=== PATIENT | male | born 1955 | race African-American/Black ===

== ENCOUNTER 2018-08-21 19:22 | Inpatient (IN) | payer SELFPAY ==
[~2018-08-21] VITALS: Ht 180.3 cm; Wt 97.5 kg
[2018-08-21] MEDS ORDERED: SODIUM CHLORIDE 0.9% 1,000 ML IV ONE (20:30)
[2018-08-21] MEDS ORDERED: KETOROLAC 30MG/ML VIAL IV STA (20:30)
[2018-08-21] MEDS ORDERED: ONDANSETRON HCL 4MG/2ML INJ IV ONE (20:45)
[2018-08-21 20:57] LABS: EOSINOPHILS % 2.1 % (0.0-5.0); HEMOGLOBIN. 14.2 g/dL (14.0-18.0); LYMPHOCYTES % 26.5 % (20.0-50.0); MEAN CORPUSCULAR HEMOGLOBIN 30.5 pg (28.0-32.0); MEAN CORPUSCULAR VOLUME 90.4 fL (80.0-94.0); MEAN PLATELET VOLUME 9.2 fl (7.4-10.4); MONOCYTES % 6.7 % (2.0-8.0); NEUTROPHILS % 63.7 % (40.0-76.0); PLATELET 214 x1000/uL (130-400); RED BLOOD CELL COUNT 4.65 mill/uL (4.7-6.1)
[2018-08-21 21:07] LABS: CHLORIDE 104 mEq/L (98-107)
[2018-08-21 21:12] LABS: D-DIMER < 0.19 mg/L FEU (<0.50); INR 1.1; PARTIAL THROMBOPLASTIN TIME 24.6 sec (23.4-31.0); PROTHROMBIN TIME 10.8 sec (9.1-11.1)
[2018-08-21] MEDS ORDERED: ASPIRIN 325MG EC TABLET PO ONE (21:45)
[2018-08-21] MEDS ORDERED: NITROGLYCERIN 0.4MG TABLET SL SL PRN (21:45)
[2018-08-21] MEDS ORDERED: DOCUSATE SODIUM 100MG CAPSULE PO PRN (23:00)
[2018-08-21] MEDS ORDERED: ONDANSETRON HCL 4MG/2ML INJ IV PRN (23:00)
[2018-08-21] MEDS ORDERED: ACETAMINOPHEN 325MG TABLET PO PRN (23:00)
[2018-08-21] MEDS ORDERED: MAGNESIUM/ALUMINUM HYDROXIDE/SIMETHICONE 30ML UDC PO PRN (23:00)
[2018-08-22 01:34] LABS: CLARITY URINE CLEAR (CLEAR); COLOR URINE YELLOW (YELLOW); KETONES URINE NEGATIVE (NEGATIVE); LEUKOCYTE ESTERASE URINE NEGATIVE (NEGATIVE); NITRITE URINE NEGATIVE (NEGATIVE); OCCULT BLOOD URINE NEGATIVE (NEGATIVE); PROTEIN URINE NEGATIVE (NEGATIVE); SPECIFIC GRAVITY URINE 1.018 (1.005-1.030); UROBILINOGEN URINE 0.2 E.U./dL (0.2-1.0)
[2018-08-22 06:30] VITALS: BP 172/102
[2018-08-22] MEDS: CLONIDINE 0.1MG TABLET PO PRN (07:11)
[2018-08-22 07:12] VITALS: BP 178/109
[2018-08-22 08:00] VITALS: BP 128/109
[2018-08-22] MEDS ORDERED: MORPHINE SULFATE 4 MG/ML CPJ (NOT FOR IM USE) IV PRN (08:00)
[2018-08-22] MEDS: HYDROCODONE/ACETAMINOPHEN 5/325MG TABLET PO PRN ×2 (09:44→18:59)
[2018-08-22] MEDS: ASPIRIN 81MG EC TABLET PO SCH (09:45)
[2018-08-22] MEDS: AMLODIPINE 10MG TABLET PO SCH (09:45)
[2018-08-22 10:31] LABS: BASOPHILS % 0.6 % (0.0-2.0); EOSINOPHILS % 1.4 % (0.0-5.0); HEMATOCRIT. 40.3 % (42.0-52.0); HEMOGLOBIN. 13.4 g/dL (14.0-18.0); LYMPHOCYTES % 23.7 % (20.0-50.0); MEAN CORPUSCULAR HEMOGLOBIN 30.3 pg (28.0-32.0); MEAN CORPUSCULAR VOLUME 91.2 fL (80.0-94.0); MEAN PLATELET VOLUME 9.2 fl (7.4-10.4); MONOCYTES % 7.8 % (2.0-8.0); NEUTROPHILS % 66.5 % (40.0-76.0); PLATELET 184 x1000/uL (130-400); RED BLOOD CELL COUNT 4.42 mill/uL (4.7-6.1)
[2018-08-22] MEDS ORDERED: SODIUM CHLORIDE 0.9% 500 ML IV ONE (11:15)
[2018-08-22] MEDS ORDERED: KETOROLAC 15MG/ML VIAL IV PRN (11:15)
[2018-08-22 11:51] LABS: CHLORIDE 105 mEq/L (98-107)
[2018-08-22 11:58] LABS: LDL CHOLESTEROL 88 mg/dL (5-100)
[2018-08-22 12:00] VITALS: BP 149/49
[2018-08-22 12:00] LABS: CREATINE KINASE 181 IU/L (39-308); HDL CHOLESTEROL 52 mg/dL (40-59)
[2018-08-22 12:03] LABS: CREATINE KINASE MB FRACTION 3.4 ng/mL (0.5-3.6)
[2018-08-22] MEDS ORDERED: PNEUMOCOCCAL 23-VAL P-SAC VAC 0.5 ML IM ONE (14:30)
[2018-08-22 15:54] LABS: CREATINE KINASE 159 IU/L (39-308); CREATINE KINASE MB FRACTION 2.9 ng/mL (0.5-3.6)
[2018-08-22 16:00] VITALS: BP 147/77
[2018-08-22 20:00] VITALS: BP 154/82
[2018-08-23] VITALS: BP 130/82
[2018-08-23 04:00] VITALS: BP 166/93
[2018-08-23] MEDS ORDERED: REGADENOSON 0.4 MG/5 ML IV SCH (07:15)
[2018-08-23 08:00] VITALS: BP 145/98
[2018-08-23 10:20] LABS: CREATINE KINASE 139 IU/L (39-308)
[2018-08-23 10:34] LABS: T4 FREE 0.77 ng/dL (0.76-1.46)
[2018-08-23] MEDS ORDERED: REGADENOSON 0.4 MG/5 ML IV ONE (11:58)
[2018-08-23 12:00] VITALS: BP 168/92
[2018-08-23 12:09] LABS: *COCAINE SCREEN URINE NEGATIVE (NEGATIVE)
[2018-08-23 12:11] LABS: *AMPHETAMINES SCREEN URINE NEGATIVE (NEGATIVE); *BENZODIAZEPINES SCREEN URINE NEGATIVE (NEGATIVE); CANNABINOID URINE SCREEN PRESUMTIVE POSITIVE (NEGATIVE); METHADONE URINE SCREEN NEGATIVE (NEGATIVE); OPIATES URINE SCREEN PRESUMTIVE POSITIVE (NEGATIVE); PHENCYCLIDINE URINE SCREEN NEGATIVE (NEGATIVE)
[2018-08-23 12:12] LABS: *BARBITURATES SCREEN URINE NEGATIVE (NEGATIVE)
[2018-08-23] MEDS: ASPIRIN 81MG EC TABLET PO SCH (12:57)
[2018-08-23] MEDS: AMLODIPINE 10MG TABLET PO SCH (12:58)
[2018-08-23] MEDS: HYDROCODONE/ACETAMINOPHEN 5/325MG TABLET PO PRN ×2 (13:02→20:26)
[2018-08-23 16:00] VITALS: BP 176/101
[2018-08-23] MEDS: CLONIDINE 0.1MG TABLET PO PRN ×2 (16:37→22:37)
[2018-08-23 17:33] LABS: CREATINE KINASE 151 IU/L (39-308)
[2018-08-23 17:35] LABS: CREATINE KINASE MB FRACTION 3.6 ng/mL (0.5-3.6)
[2018-08-23 20:00] VITALS: BP 164/98
[2018-08-23] MEDS ORDERED: ATORVASTATIN CALCIUM 40MG TABLET PO SCH (21:00)
[2018-08-24] VITALS: BP 154/95
[2018-08-24 00:23] LABS: CREATINE KINASE 175 IU/L (39-308)
[2018-08-24 04:00] VITALS: BP 141/83
[2018-08-24 07:31] VITALS: BP 147/94
[2018-08-24] MEDS: ASPIRIN 81MG EC TABLET PO SCH (08:24)
[2018-08-24] MEDS: AMLODIPINE 10MG TABLET PO SCH (08:25)
[2018-08-24] MEDS: HYDROCODONE/ACETAMINOPHEN 5/325MG TABLET PO PRN ×2 (09:01)
[2018-08-24 11:25] VITALS: BP 145/84
== END 2018-08-24 12:07 | disposition home or self-care (01) | DRG 465 ==
LOC: ER 19:22 → 5WST 21:58 → EDBEDREQTM 22:02 → EDBEDREQ 22:02 → SUPCPDRO 22:58 → ENRESERV 08-22 04:00
PROVIDERS: ADMIT Hospitalist; ATTEND Hospitalist
DX: N20.0 Calculus of kidney (principal); M48.04 Spinal stenosis, thoracic region; E78.5 Hyperlipidemia, unspecified; G89.29 Other chronic pain; R07.89 Other chest pain; I10 Essential (primary) hypertension; F17.210 Nicotine dependence, cigarettes, uncomplicated; Z88.5 Allergy status to narcotic agent; Z79.899 Other long term (current) drug therapy; Z82.49 Family history of ischemic heart disease and other diseases of the circulatory system
CPT/HCPCS: 36415; 71045; 74176; 78452; 80061; 80305; 82550; 82553; 83036; 83880; 84439; 84443; 84484; 85379; 93005; 93017; 93306; 93970; 96361; 96374; 96375; 99285; A9500; J1885; J2405; J2785; J7030; J7040

== ENCOUNTER 2021-01-28 23:16 | Emergency (ER) | payer SELFPAY ==
[~2021-01-28] VITALS: Ht 180.3 cm; Wt 96.0 kg
[2021-01-29] MEDS ORDERED: ACETAMINOPHEN 325MG TABLET PO ONE (00:15)
[2021-01-29] MEDS ORDERED: IBUPROFEN 400MG TABLET PO ONE (00:15)
[2021-01-29] MEDS ORDERED: HYDR-4346 MT (02:33)
[2021-01-29 03:23] VITALS: BP 154/76
== END 2021-01-29 03:26 | disposition home or self-care (01) ==
LOC: ER 23:16
DX: S22.20XA Unspecified fracture of sternum, initial encounter for closed fracture (principal); S27.9XXA Injury of unspecified intrathoracic organ, initial encounter; I10 Essential (primary) hypertension; F12.10 Cannabis abuse, uncomplicated; Z88.2 Allergy status to sulfonamides; V49.9XXA Car occupant (driver) (passenger) injured in unspecified traffic accident, initial encounter; Y93.89 Activity, other specified; Y92.89 Other specified places as the place of occurrence of the external cause; Y99.8 Other external cause status
CPT/HCPCS: 71250; 93005; 99284